=== PATIENT | male | born 1970 | race Caucasian/White ===

== ENCOUNTER 2021-01-30 02:02 | Emergency (ER) | payer OTHER ==
[2021-01-30 02:45] LABS: ALBUMIN 4.2 g/dL (3.4-5.0); BILIRUBIN - TOTAL 0.6 mg/dL (0.2-1.0); BUN/CREAT RATIO (CALC) 16.9 RATIO; CREATININE 2.07 mg/dL (0.67-1.17); GLOBULIN (CALCULATION) 3.6 g/dL; TOTAL PROTEIN 7.8 g/dL (6.4-8.2)
[2021-01-30 02:55] LABS: LACTIC ACID 2.1 mmol/L (0.4-1.9)
[2021-01-30 03:05] LABS: BASOPHIL 0.2 % (0-2); EOSINOPHIL 0.2 % (0-5); HCT 49.5 % (42.0-52.0); HGB 16.3 g/dl (13.2-18.0); LYMPHOCYTE 3.2 % (15-48); MCH 29.7 pg (25.0-31.0); MCHC 32.9 g/dL (32.0-36.0); MCV 90.3 fL (78.0-100.0); MONOCYTE 1.9 % (0-12); MPV 11.1 fL (6.0-9.5); NEUTROPHIL 94.2 % (41-80); NRBC 0; PLT 272 K/uL (150-400); RBC 5.48 M/uL (4.70-6.00); RDW 13.3 % (11.5-14.0)
[2021-01-30 03:06] LABS: WBC 12.4 K/uL (4.0-10.5)
== END 2021-01-30 06:14 | disposition other institution (70) ==
LOC: FER 02:02
PROVIDERS: Emergency Medicine
DX: K55.9 Vascular disorder of intestine, unspecified (principal); J44.9 Chronic obstructive pulmonary disease, unspecified; F17.200 Nicotine dependence, unspecified, uncomplicated; F15.90 Other stimulant use, unspecified, uncomplicated; Z20.822 Contact with and (suspected) exposure to COVID-19
CPT/HCPCS: 36415; 36600; 71045; 80053; 82803; 83605; 83690; 84484; 85025; 87040; 93005; J1170; J2405; J2543; J7030; U0002

== ENCOUNTER 2021-08-06 15:14 | Emergency (ER) | payer OTHER ==
[2021-08-06] MEDS ORDERED: NORCO 5-325 TA1 EACH PO (17:09)
== END 2021-08-06 17:21 | disposition home or self-care (01) ==
LOC: FER 15:14
DX: S92.515A Nondisplaced fracture of proximal phalanx of left lesser toe(s), initial encounter for closed fracture (principal); W20.8XXA Other cause of strike by thrown, projected or falling object, initial encounter
CPT/HCPCS: 73130; 73630